=== PATIENT | male | born 1955 | race Caucasian/White ===

== ENCOUNTER 2017-04-15 11:30 | Observation (INO) | payer OTHER ==
[2017-04-15] MEDS: BUPIVACAINE 0.25% (MPF) 30 ML INJ INJ
[2017-04-15] MEDS ORDERED: CEFAZOLIN 2 GM/50 ML (PMX) 50 ML IVPB (12:00)
[2017-04-15] MEDS ORDERED: SOD CHLORIDE 0.9% 1,000 ML IV (12:00)
[2017-04-15] MEDS ORDERED: MIDAZOLAM 1 MG/ML 2 ML INJ (13:05)
[2017-04-15] MEDS ORDERED: CEFAZOLIN 1 GM INJ (13:05)
[2017-04-15] MEDS ORDERED: PROPOFOL 20 ML (13:05)
[2017-04-15] MEDS ORDERED: ROPIVACAINE 0.2% 20 ML VIAL (13:05)
[2017-04-15] MEDS ORDERED: FENTAnyl 50 MCG/ML VIAL (13:05)
[2017-04-15] MEDS ORDERED: ROCURONIUM 50 MG INJ (13:05)
[2017-04-15] MEDS ORDERED: BUPIVACAINE 0.25% (MPF) 30 ML INJ (13:08)
[2017-04-15] MEDS ORDERED: POLYMYXIN/BACITRACIN 1L IRRIG (13:08)
[2017-04-15] MEDS ORDERED: PHENYLephrine (100 MCG/ML) 5ML SYG (13:17)
[2017-04-15] MEDS ORDERED: SUGAMMADEX SODIUM 200 MG/2 ML VIAL IV (13:34)
[2017-04-15] MEDS ORDERED: ONDANSETRON 4 MG INJ (13:34)
[2017-04-15] MEDS ORDERED: METOCLOPRAMIDE 10 MG INJ (13:34)
[2017-04-15] MEDS ORDERED: DEXAMETHASONE 4 MG/ML 1 ML INJ (13:34)
[2017-04-15] MEDS ORDERED: KETOROLAC 30 MG INJ (13:34)
[2017-04-15] MEDS ORDERED: EPHEDrine SULFATE 50 MG/5 ML SYG IV (14:00)
[2017-04-15] MEDS ORDERED: METOCLOPRAMIDE 10 MG INJ IV (14:00)
[2017-04-15] MEDS ORDERED: HYDROCODONE/APAP (5/325) TAB PO (14:00)
[2017-04-15] MEDS ORDERED: FENTAnyl 50 MCG/ML VIAL IV ×3 (14:00)
[2017-04-15] MEDS ORDERED: DIPHENHYDRAMINE 50 MG INJ IV (14:00)
[2017-04-15] MEDS ORDERED: HYDROmorphONE (0.2 MG/ML) 10ML SYG IV ×2 (14:00)
[2017-04-15] MEDS ORDERED: ALBUMIN HUMAN 5% 250 ML IV (14:00)
[2017-04-15] MEDS ORDERED: ONDANSETRON 4 MG INJ IV (14:00)
[2017-04-15] MEDS ORDERED: MEPERIDINE 25 MG INJ IV (14:00)
[2017-04-15] MEDS ORDERED: OXYCODONE/ACETAMINOPHEN (5/325) TAB PO ×2 (14:00)
[2017-04-15] MEDS ORDERED: morphine 2 MG INJ IV (18:00)
[2017-04-15] MEDS: HYDROCODONE/APAP (5/325) TAB PO (19:56)
[2017-04-16] MEDS: HYDROCODONE/APAP (5/325) TAB PO ×2 (01:19→09:23)
== END 2017-04-16 14:45 | disposition home or self-care (01) ==
LOC: SDS 11:30 → MS1 18:37
DX: K40.30 Unilateral inguinal hernia, with obstruction, without gangrene, not specified as recurrent (principal)
CPT/HCPCS: 49507; 99217